=== PATIENT | female | born 2000 | race Caucasian/White ===

== ENCOUNTER 2022-12-09 16:16 | Emergency (ER) | payer MEDICAID ==
[~2022-12-09] VITALS: Ht 160 cm; Wt 79.8 kg
[2022-12-09 16:53] LABS: BASOPHILS # (AUTO) 0.1 X10'3 (0-0.2); BASOPHILS % (AUTO) 0.6 % (0-1); EOSINOPHILS # (AUTO) 0.1 X10'3 (0-0.9); EOSINOPHILS % (AUTO) 1.1 % (0-6); HEMATOCRIT 42.4 % (35.0-45.0); HEMOGLOBIN 13.9 g/dl (12.0-16.0); LYMPHOCYTES # (AUTO) 1.5 X10'3 (1.1-4.8); LYMPHOCYTES % (AUTO) 15.3 % (21-51); MEAN CORPUSCULAR HEMOGLOBIN 28.9 PG (27.0-31.0); MEAN CORPUSCULAR HGB CONC 32.9 g/dL (33.0-36.5); MEAN CORPUSCULAR VOLUME 87.7 FL (78-98); MEAN PLATELET VOLUME 8.3 FL (7.4-10.4); MONOCYTES # (AUTO) 0.7 X10'3 (0-0.9); MONOCYTES % (AUTO) 6.9 % (2-12); NEUTROPHILS # (AUTO) 7.6 X10'3 (1.8-7.7); NEUTROPHILS % (AUTO) 76.1 % (42-75); PLATELET COUNT 321 X10'3 (140-440); RED BLOOD COUNT 4.83 X10'6 (4.20-5.60); RED CELL DISTRIBUTION WIDTH 12.9 % (11.5-14.5)
[2022-12-09 17:14] LABS: ALANINE AMINOTRANSFERASE 40 U/L (12-78); ALBUMIN 3.7 G/DL (3.4-5.0); ALKALINE PHOSPHATASE 66 IU/L (46-116); ANION GAP 6 (8-16); ASPARTATE AMINO TRANSFERASE 17 U/L (10-37); BILIRUBIN,TOTAL 0.6 MG/DL (0.1-1.0); BLOOD UREA NITROGEN 15 MG/DL (7-18); BUN/CREATININE RATIO 18.5 (10.0-20.0); CHLORIDE 104 MMOL/L (99-107); CREATININE 0.81 MG/DL (0.40-0.90); GLUCOSE 92 MG/DL (70-104); POTASSIUM 3.9 MMOL/L (3.5-5.1); SODIUM 139 MMOL/L (135-145); TOTAL PROTEIN 7.3 G/DL (6.4-8.2); eCRCL 91 ML/MIN; eGFR 89 ML/MIN
[2022-12-09 17:22] LABS: PRO BRAIN NATRIURETIC PEPTIDE 39 PG/ML (0-125)
[2022-12-09 23:16] VITALS: BP 127/85; PULSE 84; RESP 14; TEMP 98.3; O2SAT 98
== END 2022-12-09 23:17 | disposition home or self-care (01) ==
LOC: ER 16:16
DX: R07.89 Other chest pain (principal)
CPT/HCPCS: 36415; 71045; 80053; 83880; 84484; 85025; 93005; 99285

== ENCOUNTER 2023-02-18 05:22 | Emergency (ER) | payer OTHER, MEDICAID ==
[~2023-02-18] VITALS: Ht 167.6 cm; Wt 79.5 kg
[~2023-02-18 05:22] MED LIST: TOPI25TA49 PO
[2023-02-18 05:23] VITALS: BP 160/93; PULSE 105; RESP 16; TEMP 98.5; O2SAT 98
== END 2023-02-18 05:55 | disposition home or self-care (01) ==
LOC: ER 05:22
DX: G43.909 Migraine, unspecified, not intractable, without status migrainosus (principal); Z72.89 Other problems related to lifestyle; Z79.899 Other long term (current) drug therapy
CPT/HCPCS: 99282

== ENCOUNTER 2023-02-18 06:08 | Day surgery (SDC) | payer OTHER, MEDICAID ==
[2023-02-13 16:13] LABS: URINE HCG NEGATIVE (NEG)
[2023-02-18] VITALS (11 sets, daily range): BP systolic 120–144; BP diastolic 72–86; PULSE 94–133; RESP 11–22; TEMP 98.1; O2SAT 76–100
[~2023-02-18] VITALS: Ht 160 cm; Wt 77.1 kg
[~2023-02-18 06:08] MED LIST changes: +cefazolin 2gm/D5W 100mL 100 ML IV ONE; +famotidine 20mg tablet PO ONE; +oxymetazoline 15 ML nasal spray NS ONE; +ringers solution, lacted 1,000 ML IV SCH; +tranexamic acid inj. 1,000 MG in normal saline IV soln 100ML IV ONE
[2023-02-18] MEDS ORDERED: LIDOcaine 1% w/EPI 1:100,000 inj. MDV 50 ML VIAL ONE (06:41)
[2023-02-18] MEDS ORDERED: cocaine 4% topical solution 4ml bottle ONE (06:41)
[2023-02-18] MEDS ORDERED: mupirocin 2% ointment 22GM ONE (06:42)
[2023-02-18] MEDS ORDERED: epiNEPHrine 1 mg/ml 30ml MDV ONE (06:42)
[2023-02-18] MEDS ORDERED: oxymetazoline 15 ML nasal spray NS ONE ×2 (06:42→08:45)
[2023-02-18] MEDS ORDERED: fentaNYL/PF 50MCG/1 ML 2ML syringe ONE ×2 (07:48→08:22)
[2023-02-18] MEDS ORDERED: midazolam 1 mg/ML 2ml injection ONE (07:48)
[2023-02-18] MEDS ORDERED: LIDOcaine 2% (20mg/ml) 5ml vial ONE (07:53)
[2023-02-18] MEDS ORDERED: propofol inj 20 ML IV ONE (07:53)
[2023-02-18] MEDS ORDERED: dexamethasone sod phosphate 4mg/ml inj. ONE (07:53)
[2023-02-18] MEDS ORDERED: ondansetron/PF 4mg/2ml inj ONE (07:53)
[2023-02-18] MEDS ORDERED: sevoflurane 250ml liquid IH ONE (08:10)
[2023-02-18] MEDS ORDERED: morphine 2 MG/ML inj. syringe IV PRN (08:30)
[2023-02-18] MEDS ORDERED: meperidine/PF 25mg/ml syringe IV PRN ×3 (08:30)
[2023-02-18] MEDS ORDERED: proCHLORperazine 10 MG/2 ml inj IV PRN (08:30)
[2023-02-18] MEDS ORDERED: morphine 4 MG/ML inj SYRINge IV PRN (08:30)
[2023-02-18] MEDS ORDERED: ondansetron/PF 4mg/2ml inj IV PRN (08:30)
[2023-02-18] MEDS ORDERED: ringers solution, lacted 1,000 ML IV SCH (08:30)
[2023-02-18] MEDS ORDERED: LIDOcaine 1% w/EPI 1:100,000 30ml vial (MDV) IJ ONE (08:45)
[2023-02-18] MEDS ORDERED: cocaine 4% topical solution 4ml bottle TP ONE (08:45)
[2023-02-18] MEDS ORDERED: cefTAZidime 1gm inj ONE (08:53)
[2023-02-18] MEDS ORDERED: cefTAZidime 1gm inj IVT ONE (09:00)
[2023-02-18] MEDS ORDERED: acetaminophen 1,000mg/100ml IV 100 ML IV ONE (10:45)
[2023-02-18] MEDS ORDERED: salt irrigation nasal spray 45 ML SPRAY NS PRN (11:10)
== END 2023-02-18 12:57 | disposition home or self-care (01) ==
LOC: PAS 06:08
PROVIDERS: ATTEND Otolaryngology
DX: J34.2 Deviated nasal septum (principal); J34.3 Hypertrophy of nasal turbinates; J34.89 Other specified disorders of nose and nasal sinuses; J32.8 Other chronic sinusitis; J33.8 Other polyp of sinus; F41.9 Anxiety disorder, unspecified; I10 Essential (primary) hypertension; E66.9 Obesity, unspecified; Z68.30 Body mass index [BMI] 30.0-30.9, adult; Z79.899 Other long term (current) drug therapy; Z98.890 Other specified postprocedural states; Z87.891 Personal history of nicotine dependence; F10.21 Alcohol dependence, in remission
CPT/HCPCS: 30140; 30520; 31240; 31253; 31255; 31267; 61782; 81025; 82948; A6402; C2625; J0131; J0171; J0690; J0713; J1100; J2175; J2250; J2405; J2704; J3010; J3490; J7030; J7050; J7120; Z7506; Z7508; Z7512; A4618; A6449; A7000